=== PATIENT | male | born 1960 | race Two or more races ===

== ENCOUNTER 2020-05-03 15:21 | Emergency (ER) | payer OTHER, SELFPAY ==
[~2020-05-03] VITALS: Ht 170.2 cm; Wt 98.6 kg
[2020-05-03 16:11] LABS: BASOPHILS % (AUTO) 0 % (0-1); EOSINOPHILS % (AUTO) 0 % (1-7); LYMPHOCYTES % (AUTO) 7 % (22-44); MEAN CORPUSCULAR HEMOGLOBIN 31.1 pg (27.5-34.5); MEAN CORPUSCULAR HGB CONC 34.1 g/dL (33.2-36.2); MEAN PLATELET VOLUME 9.6 fL (7.4-10.4); MONOCYTES % (AUTO) 5 % (2-9); NEUTROPHILS % (AUTO) 87 % (42-75); PLATELET COUNT 205 x10^3/uL (130-400); RED BLOOD COUNT 4.74 x10^6/uL (4.38-5.82); RED CELL DISTRIBUTION WIDTH 14.2 % (9.4-14.8)
[2020-05-03 16:12] LABS: MD NO
[2020-05-03 16:14] LABS: ALANINE AMINOTRANSFERASE 75 U/L (12-78); ALBUMIN 3.2 g/dL (3.4-5.0); ANION GAP 8 mmol/L (5-15); CALCIUM 7.9 mg/dL (8.5-10.1); CHLORIDE 104 mmol/L (98-107); CREATININE 1.16 mg/dL (0.7-1.3)
[2020-05-03 16:19] LABS: ALKALINE PHOSPHATASE 106 U/L (45-117); BILIRUBIN,TOTAL 0.9 mg/dL (0.2-1.0); TOTAL PROTEIN 7.4 g/dL (6.4-8.2); TROPONIN I < 0.015 ng/mL (0.000-0.045)
--- NOTE | 2020-05-03 16:20 | NUR ---
PATIENT REPORTS FEELING POORLY X 2 WEEKS, DIAGNOSED WITH COVID-19 APPROXIMATELY 4-5 DAYS PREVIOUS AFTER FAMILY MEMBER IN SAME HOUSEHOLD TESTED POSITIVE. STATES CHEST PAIN CHANGES WITH MOVEMENT, INSPIRATION, AND POSITIONING. STATES THAT HE TAKES UNKNOWN BLOOD PRESSURE AND HIGH CHOLESTEROL MEDICATIONS.
[2020-05-03] MEDS ORDERED: ATOR20TA37 PO (16:43)
[2020-05-03] MEDS ORDERED: METO50TA82 PO (16:43)
--- NOTE | 2020-05-03 16:43 | NUR ---
SPOKE WITH WHO PROVIDED MEDICATION NAMES, DOSAGE, AND LAST TIME TAKEN.
[2020-05-03] MEDS ORDERED: BAMLANIVIMAB 700 MG in SODIUM CHLORIDE 0.9% 180 ML IVPB ONE (18:00)
[2020-05-03] MEDS ORDERED: FILTER 0.22 MICRON IV ONE (18:00)
--- NOTE | 2020-05-03 19:25 | NUR ---
PATIENT STATES INCREASE IN WELLBEING AFTER FLUID/MED GIVEN, NO NEEDS AT THIS TIME, VSS, WILL CONTINUE TO MONITOR.
[2020-05-03 20:54] VITALS: BP 119/71
--- NOTE | 2020-05-03 20:56 | NUR ---
PATIENT AMBULATORY WITHOUT ASSISTANCE, OFFERED WHEELCHAIR FOR COMFORT. AWAITING TO PICK HIM UP. RETURNS APPROPRIATE RESPONSE POST DISCHARGE, MEDICATION, QUARENTINE, AND FOLLOW UP TEACHING.
== END 2020-05-03 20:59 | disposition home or self-care (01) ==
LOC: ED 15:53
DX: U07.1 COVID-19 (principal); J15.9 Unspecified bacterial pneumonia; R07.9 Chest pain, unspecified; I10 Essential (primary) hypertension
CPT/HCPCS: 36415; 71045; 80053; 83690; 84484; 85025; 93005; 99285; J7050; M0239; Q0239